=== PATIENT | female | born 1940 | race Caucasian/White ===

== ENCOUNTER 2022-05-21 22:50 | Inpatient (IN) | payer MEDICARE, BC ==
[~2022-05-21] VITALS: Ht 157.5 cm; Wt 83.4 kg
[2022-05-22 01:08] LABS: Basophils # (auto) 0.1 10 ^3/uL (0-0.2); Basophils % (auto) 0.7 % (0.0-2.0); Eosinophils # (auto) 0.1 10 ^3/uL (0-0.8); Hematocrit 42.6 % (36.0-46.0); Hemoglobin 14.4 g/dL (12.2-16.2); Lymphocytes # (auto) 1.7 10 ^3/uL (0.4-5.4); Lymphocytes % (auto) 13.4 % (10.0-50.0); Mean Corpuscular Hgb Conc. 33.7 g/dL (32.0-36.0); Mean Corpuscular Volume 97.9 fL (80.0-100.0); Monocytes # (auto) 0.5 10 ^3/uL (0-1.3); Monocytes % (auto) 3.9 % (0.0-12.0); Neutrophils # (auto) 10.2 10 ^3/uL (1.6-8.6); Red Blood Cells 4.36 10^6/uL (4.0-5.20); Red Cell Distribution Width 12.7 % (11.8-14.3); White Blood Cell 12.6 10^3/uL (4.4-10.8)
[2022-05-22 01:20] LABS: Albumin 3.5 g/dL (3.4-5.0); Calcium 9.5 mg/dL (8.5-10.1); Potassium 3.8 mmol/L (3.5-5.1)
[2022-05-22 01:23] LABS: BUN/Creatinine Ratio 17.5
[2022-05-22 01:25] LABS: Bilirubin, Total 0.4 mg/dL (0.2-1.0); Total Protein 6.3 g/dL (6.4-8.2)
[2022-05-22] MEDS ORDERED: cefTRIAXone 1GM/50ML D5W 50 ML IV ONE ×2 (03:00→16:00)
[2022-05-22] MEDS ORDERED: SODIUM CHLORIDE 0.9% 1,000 ML IV ONE (03:00)
[2022-05-22] MEDS ORDERED: InsuLIN REG 1unit/0.01ml Soln (100units/ml) IV ONE (03:00)
[2022-05-22] MEDS ORDERED: DEXTROSE (50%) 50ML SYRG IV PRN ×2 (05:30→16:00)
[2022-05-22] MEDS ORDERED: TEMAZEPAM 15 MG CAP PO PRN (05:30)
[2022-05-22] MEDS ORDERED: ONDANSETRON HCL 4 MG/2 ML VIAL IV PRN (05:30)
[2022-05-22] MEDS: ACCU-CHEK COMFORT CURVE STRIP VI SCH ×6 (07:06→22:34)
[2022-05-22] MEDS: InsuLIN REG 1unit/0.01ml Soln (100units/ml) SC SCH ×4 (07:07→22:44)
[2022-05-22] MEDS: LEVOTHYROXINE SODIUM 25 MCG TAB PO SCH (07:14)
[2022-05-22] MEDS ORDERED: LOSARTAN POTASSIUM 50 MG TAB PO SCH (10:00)
[2022-05-22] MEDS ORDERED: HCTZ 25 MG TAB PO SCH (10:00)
[2022-05-22] MEDS: ENOXAPARIN SOD 40 MG/0.4 ML SYRINGE SC SCH (14:48)
[2022-05-22] MEDS: METOPROLOL TARTRATE 50 MG TAB PO SCH ×3 (14:49→23:44)
[2022-05-22] MEDS: PANTOPRAZOLE 40 MG TAB PO SCH (14:50)
[2022-05-22] MEDS: MEMANTINE PO SCH (14:57)
[2022-05-22] MEDS: SODIUM CHLORIDE 0.9% 1,000 ML IV SCH (16:24)
[2022-05-22 19:07] LABS: Urine Blood Negative /uL (Negative)
[2022-05-22] MEDS ORDERED: cefTRIAXone 1GM/50ML D5W 50 ML IV SCH (21:00)
[2022-05-22] MEDS: ATORVASTATIN 20 MG TAB PO SCH (22:44)
[2022-05-23] MEDS: METOPROLOL TARTRATE 50 MG TAB PO SCH (00:58)
[2022-05-23] MEDS ORDERED: TEMAZEPAM 15 MG CAP PO ONE (05:15)
[2022-05-23] MEDS: ACCU-CHEK COMFORT CURVE STRIP VI SCH ×6 (07:00→22:04)
[2022-05-23 07:14] LABS: Basophils # (auto) 0.1 10 ^3/uL (0-0.2); Basophils % (auto) 0.5 % (0.0-2.0); Eosinophils # (auto) 0.3 10 ^3/uL (0-0.8); Eosinophils % (auto) 3.1 % (0.0-7.0); Hematocrit 42.3 % (36.0-46.0); Hemoglobin 14.7 g/dL (12.2-16.2); Lymphocytes # (auto) 1.6 10 ^3/uL (0.4-5.4); Lymphocytes % (auto) 16.5 % (10.0-50.0); Mean Corpuscular Hemoglobin 33.9 pg (28.0-32.0); Mean Corpuscular Hgb Conc. 34.7 g/dL (32.0-36.0); Mean Corpuscular Volume 97.7 fL (80.0-100.0); Monocytes # (auto) 0.6 10 ^3/uL (0-1.3); Monocytes % (auto) 6.2 % (0.0-12.0); Neutrophils # (auto) 7.2 10 ^3/uL (1.6-8.6); Neutrophils % (auto) 73.7 % (37.0-80.0); Nucleated Red Blood Cells % 0.1 %; Red Blood Cells 4.33 10^6/uL (4.0-5.20); Red Cell Distribution Width 12.7 % (11.8-14.3); White Blood Cell 9.8 10^3/uL (4.4-10.8)
[2022-05-23 07:41] LABS: Albumin 3.5 g/dL (3.4-5.0); Potassium 4.3 mmol/L (3.5-5.1)
[2022-05-23 07:47] LABS: BUN/Creatinine Ratio 18.4; Bilirubin, Total 0.5 mg/dL (0.2-1.0); Calcium 9.5 mg/dL (8.5-10.1); Total Protein 6.8 g/dL (6.4-8.2)
[2022-05-23] MEDS: LEVOTHYROXINE SODIUM 25 MCG TAB PO SCH (08:32)
[2022-05-23] MEDS: InsuLIN REG 1unit/0.01ml Soln (100units/ml) SC SCH ×4 (08:35→22:07)
[2022-05-23] MEDS: SODIUM CHLORIDE 0.9% 1,000 ML IV SCH (08:40)
[2022-05-23] MEDS: cefTRIAXone 1GM/50ML D5W 50 ML IV SCH (09:24)
[2022-05-23] MEDS ORDERED: LOSARTAN POTASSIUM 50 MG TAB PO SCH (10:00)
[2022-05-23] MEDS: PANTOPRAZOLE 40 MG TAB PO SCH (10:13)
[2022-05-23] MEDS: ENOXAPARIN SOD 40 MG/0.4 ML SYRINGE SC SCH (10:16)
[2022-05-23] MEDS: ACETAMINOPHEN 325 MG TAB PO PRN (10:20)
[2022-05-23] MEDS: MEMANTINE PO SCH (10:42)
[2022-05-23 15:00] VITALS: BP 177/84
[2022-05-23] MEDS: hydrALAZINE HCL 20 MG/ML VL IV PRN (16:00)
[2022-05-23 17:00] VITALS: BP 145/68
[2022-05-23 17:28] LABS: Urine Bacteria FEW /hpf (None Seen); Urine Blood 3+ /uL (Negative); Urine Hyaline Cast FEW /lpf (0 - 2); Urine Specific Gravity 1.005 (1.001-1.035); Urine WBC 2 /hpf (0 - 5)
[2022-05-23] MEDS: metFORMIN HYDROCHLORIDE 500 MG TAB PO SCH (17:44)
[2022-05-23] MEDS ORDERED: MELATONIN 5 MG TAB PO ONE ×2 (22:00)
[2022-05-23] MEDS: ATORVASTATIN 20 MG TAB PO SCH (22:02)
[2022-05-23] MEDS: LOSARTAN POTASSIUM 50 MG TAB PO SCH (22:02)
[2022-05-23] MEDS ORDERED: LORazepam 2MG/ML-1ML VIAL IV PRN (23:00)
[2022-05-24 05:00] VITALS: BP 157/78
[2022-05-24] MEDS: ACCU-CHEK COMFORT CURVE STRIP VI SCH ×4 (06:07→21:26)
[2022-05-24] MEDS: InsuLIN REG 1unit/0.01ml Soln (100units/ml) SC SCH ×4 (06:08→21:29)
[2022-05-24] MEDS: LEVOTHYROXINE SODIUM 25 MCG TAB PO SCH (06:09)
[2022-05-24] MEDS: hydrALAZINE HCL 20 MG/ML VL IV PRN (06:20)
[2022-05-24 07:03] LABS: Basophils # (auto) 0.1 10 ^3/uL (0-0.2); Basophils % (auto) 0.9 % (0.0-2.0); Eosinophils # (auto) 0.3 10 ^3/uL (0-0.8); Eosinophils % (auto) 4.3 % (0.0-7.0); Hematocrit 43.1 % (36.0-46.0); Hemoglobin 14.5 g/dL (12.2-16.2); Lymphocytes # (auto) 2.1 10 ^3/uL (0.4-5.4); Lymphocytes % (auto) 34.3 % (10.0-50.0); Mean Corpuscular Hemoglobin 32.7 pg (28.0-32.0); Mean Corpuscular Hgb Conc. 33.6 g/dL (32.0-36.0); Mean Corpuscular Volume 97.5 fL (80.0-100.0); Monocytes # (auto) 0.4 10 ^3/uL (0-1.3); Monocytes % (auto) 7.1 % (0.0-12.0); Neutrophils # (auto) 3.3 10 ^3/uL (1.6-8.6); Neutrophils % (auto) 53.4 % (37.0-80.0); Nucleated Red Blood Cells % 0.1 %; Red Blood Cells 4.42 10^6/uL (4.0-5.20); Red Cell Distribution Width 12.6 % (11.8-14.3); White Blood Cell 6.2 10^3/uL (4.4-10.8)
[2022-05-24 07:27] LABS: BUN/Creatinine Ratio 21.9; Calcium 9.4 mg/dL (8.5-10.1); Potassium 3.8 mmol/L (3.5-5.1)
[2022-05-24] MEDS: metFORMIN HYDROCHLORIDE 500 MG TAB PO SCH ×2 (07:48→18:18)
[2022-05-24 09:00] VITALS: BP 153/75
[2022-05-24] MEDS: PANTOPRAZOLE 40 MG TAB PO SCH (09:18)
[2022-05-24] MEDS: ENOXAPARIN SOD 40 MG/0.4 ML SYRINGE SC SCH (09:18)
[2022-05-24] MEDS: MEMANTINE PO SCH (09:19)
[2022-05-24] MEDS: LOSARTAN POTASSIUM 50 MG TAB PO SCH ×2 (09:20→21:25)
[2022-05-24] MEDS: METOPROLOL TARTRATE 50 MG TAB PO SCH ×2 (09:20→21:25)
[2022-05-24] MEDS: cefTRIAXone 1GM/50ML D5W 50 ML IV SCH (11:44)
[2022-05-24 13:00] VITALS: BP 126/70
[2022-05-24 17:00] VITALS: BP 128/69
[2022-05-24] MEDS: ATORVASTATIN 20 MG TAB PO SCH (21:25)
[2022-05-24] MEDS: GABAPENTIN 100 MG CAP PO SCH (21:26)
[2022-05-24 22:00] VITALS: BP 132/71
[2022-05-25 05:00] VITALS: BP 138/78
[2022-05-25] MEDS: ACCU-CHEK COMFORT CURVE STRIP VI SCH ×4 (06:14→21:33)
[2022-05-25] MEDS: InsuLIN REG 1unit/0.01ml Soln (100units/ml) SC SCH ×4 (06:15→21:36)
[2022-05-25] MEDS: GABAPENTIN 100 MG CAP PO SCH ×3 (06:16→21:32)
[2022-05-25] MEDS: LEVOTHYROXINE SODIUM 25 MCG TAB PO SCH (06:16)
[2022-05-25] MEDS: metFORMIN HYDROCHLORIDE 500 MG TAB PO SCH ×2 (07:54→18:32)
[2022-05-25] MEDS: cefTRIAXone 1GM/50ML D5W 50 ML IV SCH (09:07)
[2022-05-25] MEDS: PANTOPRAZOLE 40 MG TAB PO SCH (09:08)
[2022-05-25] MEDS: HCTZ 25 MG TAB PO SCH (09:08)
[2022-05-25] MEDS: METOPROLOL TARTRATE 50 MG TAB PO SCH ×2 (09:08→21:32)
[2022-05-25] MEDS: LOSARTAN POTASSIUM 50 MG TAB PO SCH ×2 (09:09→21:31)
[2022-05-25] MEDS: ENOXAPARIN SOD 40 MG/0.4 ML SYRINGE SC SCH (09:10)
[2022-05-25] MEDS: MEMANTINE PO SCH (09:10)
[2022-05-25] MEDS: ATORVASTATIN 20 MG TAB PO SCH (21:31)
[2022-05-25 22:00] VITALS: BP 147/78
[2022-05-26 05:00] VITALS: BP 104/68
[2022-05-26] MEDS: ACCU-CHEK COMFORT CURVE STRIP VI SCH ×4 (06:02→22:03)
[2022-05-26] MEDS: InsuLIN REG 1unit/0.01ml Soln (100units/ml) SC SCH ×4 (06:04→22:11)
[2022-05-26] MEDS: GABAPENTIN 100 MG CAP PO SCH ×3 (06:05→22:02)
[2022-05-26] MEDS: LEVOTHYROXINE SODIUM 25 MCG TAB PO SCH (06:05)
[2022-05-26] MEDS: metFORMIN HYDROCHLORIDE 500 MG TAB PO SCH ×2 (09:02→18:41)
[2022-05-26] MEDS: cefTRIAXone 1GM/50ML D5W 50 ML IV SCH (09:02)
[2022-05-26] MEDS: ENOXAPARIN SOD 40 MG/0.4 ML SYRINGE SC SCH (09:03)
[2022-05-26] MEDS: MEMANTINE PO SCH (09:04)
[2022-05-26] MEDS: HCTZ 25 MG TAB PO SCH (09:06)
[2022-05-26] MEDS: METOPROLOL TARTRATE 50 MG TAB PO SCH ×2 (09:06→22:03)
[2022-05-26] MEDS: LOSARTAN POTASSIUM 50 MG TAB PO SCH ×2 (09:06→22:03)
[2022-05-26 09:55] LABS: Folate (Folic Acid) 22.55 ng/mL (5.38-24)
[2022-05-26 12:30] VITALS: BP 108/66
[2022-05-26 14:00] LABS: Urine Bacteria MOD /hpf (None Seen); Urine Blood 3+ /uL (Negative); Urine Specific Gravity 1.009 (1.001-1.035); Urine WBC 11 /hpf (0 - 5)
[2022-05-26 17:00] VITALS: BP 148/68
[2022-05-26] MEDS: ACETAMINOPHEN 325 MG TAB PO PRN (18:42)
[2022-05-26 22:00] VITALS: BP 136/64
[2022-05-26] MEDS: ATORVASTATIN 20 MG TAB PO SCH (22:02)
[2022-05-27 05:00] VITALS: BP 137/73
[2022-05-27] MEDS: GABAPENTIN 100 MG CAP PO SCH ×3 (06:53→22:01)
[2022-05-27] MEDS: LEVOTHYROXINE SODIUM 25 MCG TAB PO SCH (06:53)
[2022-05-27] MEDS: EMPAGLIFLOZIN 10 MG TAB PO SCH (06:54)
[2022-05-27] MEDS: ACCU-CHEK COMFORT CURVE STRIP VI SCH ×4 (06:54→22:01)
[2022-05-27] MEDS: InsuLIN REG 1unit/0.01ml Soln (100units/ml) SC SCH ×4 (06:59→22:00)
[2022-05-27 09:00] VITALS: BP 126/66
[2022-05-27] MEDS: LOSARTAN POTASSIUM 50 MG TAB PO SCH ×2 (09:55→22:01)
[2022-05-27] MEDS: HCTZ 25 MG TAB PO SCH (09:55)
[2022-05-27] MEDS: ACETAMINOPHEN 325 MG TAB PO PRN (09:55)
[2022-05-27] MEDS: METOPROLOL TARTRATE 50 MG TAB PO SCH ×2 (09:56→22:01)
[2022-05-27] MEDS: metFORMIN HYDROCHLORIDE 500 MG TAB PO SCH ×3 (09:58→17:43)
[2022-05-27] MEDS: cefTRIAXone 1GM/50ML D5W 50 ML IV SCH (09:58)
[2022-05-27] MEDS: MEMANTINE PO SCH (11:40)
[2022-05-27] MEDS ORDERED: traMADol HCL 50 MG TAB PO PRN (12:15)
[2022-05-27 12:58] VITALS: BP 120/69
[2022-05-27 16:51] VITALS: BP 132/68
[2022-05-27 22:00] VITALS: BP 98/68
[2022-05-27] MEDS: ATORVASTATIN 20 MG TAB PO SCH (22:00)
[2022-05-28 04:30] VITALS: BP 114/76
[2022-05-28] MEDS: GABAPENTIN 100 MG CAP PO SCH ×2 (07:05→14:00)
[2022-05-28] MEDS: ACCU-CHEK COMFORT CURVE STRIP VI SCH ×3 (07:05→17:00)
[2022-05-28] MEDS: LEVOTHYROXINE SODIUM 25 MCG TAB PO SCH (07:05)
[2022-05-28] MEDS: EMPAGLIFLOZIN 10 MG TAB PO SCH (07:05)
[2022-05-28] MEDS: InsuLIN REG 1unit/0.01ml Soln (100units/ml) SC SCH ×3 (07:06→17:30)
[2022-05-28 09:00] VITALS: BP 111/68
[2022-05-28] MEDS: cefTRIAXone 1GM/50ML D5W 50 ML IV SCH (10:21)
[2022-05-28] MEDS: METOPROLOL TARTRATE 50 MG TAB PO SCH (10:22)
[2022-05-28] MEDS: metFORMIN HYDROCHLORIDE 500 MG TAB PO SCH ×2 (10:22→18:00)
[2022-05-28] MEDS: LOSARTAN POTASSIUM 50 MG TAB PO SCH (10:23)
[2022-05-28] MEDS: HCTZ 25 MG TAB PO SCH (10:23)
[2022-05-28] MEDS: MEMANTINE PO SCH (10:24)
[2022-05-28] MEDS ORDERED: CEFD300C2 PO (11:31)
[2022-05-28] MEDS ORDERED: EMPA1TAB PO (11:31)
[2022-05-28 12:30] VITALS: BP 142/77
[2022-05-28 15:23] VITALS: BP 111/68
[2022-05-28 17:00] VITALS: BP 112/64
== END 2022-05-28 17:30 | disposition home health service (06) | DRG 689 ==
LOC: ER 22:50 → EDBD 22:50 → OVERFLOW 05-22 05:22 → EAST 05-23 14:53
PROVIDERS: ADMIT Nurse Practitioner; ATTEND Internal Medicine
DX: N39.0 Urinary tract infection, site not specified (principal); G92.8 Other toxic encephalopathy; E11.65 Type 2 diabetes mellitus with hyperglycemia; I11.0 Hypertensive heart disease with heart failure; F02.80 Dementia in other diseases classified elsewhere, unspecified severity, without behavioral disturbance, psychotic disturbance, mood disturbance, and anxiety; G30.9 Alzheimer's disease, unspecified; E03.9 Hypothyroidism, unspecified; Z20.822 Contact with and (suspected) exposure to COVID-19; E66.9 Obesity, unspecified; I50.9 Heart failure, unspecified; Z63.4 Disappearance and death of family member; Z79.899 Other long term (current) drug therapy; Z81.8 Family history of other mental and behavioral disorders; Z82.49 Family history of ischemic heart disease and other diseases of the circulatory system; Z95.0 Presence of cardiac pacemaker; Z90.49 Acquired absence of other specified parts of digestive tract; Z79.84 Long term (current) use of oral hypoglycemic drugs; Z68.31 Body mass index [BMI] 31.0-31.9, adult
CPT/HCPCS: 36415; 70450; 70551; 71045; 80048; 80053; 81001; 81003; 82607; 82746; 82962; 83036; 84443; 84484; 85025; 87086; 87426; 93005; 93306; 95819; 96365; 96366; 96372; 96375; 97110; 97116; 97163; 97530; G0378; J0696; J1815

== ENCOUNTER → 2022-06-13 | Outpatient (CLI) | payer MEDICARE, BC ==
[~2022-06-13] MED LIST: CEFD300C2 PO; EMPA1TAB PO
[2022-06-13 14:05] LABS: Urine Bacteria NONE SEEN /hpf (None Seen); Urine Blood 1+ /uL (Negative); Urine Specific Gravity 1.028 (1.001-1.035); Urine WBC 24 /hpf (0 - 5)
== END | disposition home or self-care (01) ==
LOC: LAB 13:39
PROVIDERS: ATTEND Internal Medicine
DX: E11.65 Type 2 diabetes mellitus with hyperglycemia (principal); R31.9 Hematuria, unspecified
CPT/HCPCS: 81001; 87086

== ENCOUNTER → 2022-06-24 | Outpatient (CLI) | payer MEDICARE, BC ==
[2022-06-24 16:15] LABS: Urine Bacteria NONE SEEN /hpf (None Seen); Urine Blood Negative /uL (Negative); Urine Specific Gravity 1.026 (1.001-1.035); Urine WBC <1 /hpf (0 - 5)
== END | disposition home or self-care (01) ==
LOC: LAB 15:55
PROVIDERS: ATTEND Internal Medicine
DX: N30.00 Acute cystitis without hematuria (principal)
CPT/HCPCS: 81001; 87086

== ENCOUNTER 2023-03-30 15:49 | Emergency (ER) | payer MEDICARE, BC ==
[~2023-03-30] VITALS: Ht 160 cm; Wt 68.0 kg
[2023-03-30 16:20] VITALS: BP 138/68; PULSE 79; RESP 18; O2SAT 95
[2023-03-30] MEDS ORDERED: HYDR-4902 PO (18:19)
[2023-03-30] MEDS ORDERED: HYDROcodone-ACET 5/325MG TAB PO ONE (18:30)
== END 2023-03-30 19:05 | disposition home or self-care (01) ==
LOC: ER 15:49
DX: S20.212A Contusion of left front wall of thorax, initial encounter (principal); S70.02XA Contusion of left hip, initial encounter; S09.90XA Unspecified injury of head, initial encounter; I11.0 Hypertensive heart disease with heart failure; I50.9 Heart failure, unspecified; E03.9 Hypothyroidism, unspecified; E11.9 Type 2 diabetes mellitus without complications; E78.5 Hyperlipidemia, unspecified; Z90.49 Acquired absence of other specified parts of digestive tract; Z95.0 Presence of cardiac pacemaker; Z79.899 Other long term (current) drug therapy; W18.39XA Other fall on same level, initial encounter; Y93.89 Activity, other specified; Y92.89 Other specified places as the place of occurrence of the external cause; Y99.8 Other external cause status
CPT/HCPCS: 70450; 71101; 73502; 82962

== ENCOUNTER → 2023-09-21 | Outpatient (CLI) | payer MEDICARE, BC ==
[~2023-09-21] MED LIST changes: +HYDR-4902 PO
[2023-09-21 13:59] LABS: Alanine Aminotransferase 21 U/L (7-40); Albumin 4.4 g/dL (3.2-4.8); Alkaline Phosphatase 97 U/L (46-116); Anion Gap 5 (5-15); Aspartate Aminotransferase 18 U/L (13-40); BUN/Creatinine Ratio 23.8 (10.0-20.0); Bilirubin, Total 0.6 mg/dL (0.2-1.0); Blood Urea Nitrogen 24 mg/dL (9-23); Calcium 10.6 mg/dL (8.5-10.1); Carbon Dioxide 31 mmol/L (20-30); Chloride 106 mmol/L (98-107); Glucose 215 mg/dL (74-106); Potassium 3.9 mmol/L (3.5-5.1); Sodium 142 mmol/L (136-145); Total Protein 6.8 g/dL (5.7-8.2)
== END | disposition home or self-care (01) ==
LOC: LAB 13:13
PROVIDERS: ATTEND Internal Medicine
DX: Z01.812 Encounter for preprocedural laboratory examination (principal)
CPT/HCPCS: 36415; 80053

== ENCOUNTER → 2023-09-22 | Outpatient (CLI) | payer MEDICARE, BC ==
[2023-09-22 11:10] LABS: Basophils # (auto) 0.1 10 ^3/uL (0-0.2); Basophils % (auto) 0.9 % (0.0-2.0); Eosinophils # (auto) 0.4 10 ^3/uL (0-0.8); Eosinophils % (auto) 5.7 % (0.0-7.0); Hematocrit 43.9 % (36.0-46.0); Hemoglobin 15.2 g/dL (12.2-16.2); Lymphocytes # (auto) 2.2 10 ^3/uL (0.4-5.4); Lymphocytes % (auto) 29.2 % (10.0-50.0); Mean Corpuscular Hemoglobin 33.1 pg (28.0-32.0); Mean Corpuscular Hgb Conc. 34.5 g/dL (32.0-36.0); Mean Corpuscular Volume 95.8 fL (80.0-100.0); Monocytes # (auto) 0.4 10 ^3/uL (0-1.3); Monocytes % (auto) 5.9 % (0.0-12.0); Neutrophils # (auto) 4.4 10 ^3/uL (1.6-8.6); Neutrophils % (auto) 58.3 % (37.0-80.0); Nucleated Red Blood Cells % 0.1 %; Red Blood Cells 4.58 10^6/uL (4.0-5.20); Red Cell Distribution Width 13.1 % (11.8-14.3); White Blood Cell 7.5 10^3/uL (4.4-10.8)
[2023-09-22 11:29] LABS: Urine Bacteria FEW /hpf (None Seen); Urine Blood Negative /uL (Negative); Urine Clarity Clear (Clear); Urine Color Light-Yellow (Yellow); Urine Protein, UAD Negative (Negative); Urine Specific Gravity 1.028 (1.001-1.035); Urine Urobilinogen Normal (Negative); Urine WBC 7 /hpf (0 - 5)
[2023-09-22 11:32] LABS: Alanine Aminotransferase 24 U/L (7-40); Albumin 4.5 g/dL (3.2-4.8); Alkaline Phosphatase 97 U/L (46-116); Anion Gap 5 (5-15); Aspartate Aminotransferase 16 U/L (13-40); BUN/Creatinine Ratio 24.2 (10.0-20.0); Blood Urea Nitrogen 23 mg/dL (9-23); Calcium 10.5 mg/dL (8.5-10.1); Carbon Dioxide 30 mmol/L (20-30); Chloride 106 mmol/L (98-107); Glucose 176 mg/dL (74-106); Potassium 3.8 mmol/L (3.5-5.1); Sodium 141 mmol/L (136-145); Total Protein 6.8 g/dL (5.7-8.2)
[2023-09-22 11:36] LABS: Carcinoembryonic Antigen 1.82 ng/mL (<=5.0); Thyroid Stimulating Hormone 5.55 uIU/mL (0.55-4.78)
[2023-09-22 11:54] LABS: Bilirubin, Total 0.6 mg/dL (0.2-1.0)
== END | disposition home or self-care (01) ==
LOC: LAB 10:49
PROVIDERS: ATTEND Internal Medicine
DX: E11.65 Type 2 diabetes mellitus with hyperglycemia (principal); C18.9 Malignant neoplasm of colon, unspecified; C78.89 Secondary malignant neoplasm of other digestive organs
CPT/HCPCS: 36415; 80053; 81001; 82043; 82378; 82607; 83036; 83615; 84443; 85025; 86301

== ENCOUNTER → 2023-10-12 | Outpatient (CLI) | payer MEDICARE, BC | END | disposition home or self-care (01) | LOC: XYW 09:04 | PROVIDERS: ATTEND Internal Medicine | DX: I70.202 Unspecified atherosclerosis of native arteries of extremities, left leg (principal) | CPT/HCPCS: 93925 ==